=== PATIENT | male | born 1980 | race Two or more races ===

== ENCOUNTER 2019-07-07 10:54 | Emergency (ER) | payer OTHER ==
[~2019-07-07] VITALS: Ht 170.2 cm; Wt 99.8 kg
[2019-07-07 11:11] VITALS: BP 157/94
== END 2019-07-07 12:19 | disposition home or self-care (01) ==
LOC: ER 10:54
DX: S93.492A Sprain of other ligament of left ankle, initial encounter (principal); S60.031A Contusion of right middle finger without damage to nail, initial encounter; B35.1 Tinea unguium; W18.09XA Striking against other object with subsequent fall, initial encounter; Y93.89 Activity, other specified; Y92.89 Other specified places as the place of occurrence of the external cause; Y99.8 Other external cause status
CPT/HCPCS: 73130-TC; 73610-TC